=== PATIENT | female | born 2005 | race Caucasian/White ===

== ENCOUNTER 2023-04-30 09:36 | Day surgery (SDC) | payer OTHER, SELFPAY ==
[2023-04-30] VITALS (12 sets, daily range): BP systolic 112–145; BP diastolic 51–85; PULSE 69–133; RESP 16–20; TEMP 36.2–37.3; O2SAT 95–100; BMI 32.9
--- NOTE | ~2023-04-30 | CT_ITS ---
EXAMINATION: CT abdomen pelvis w IV con CLINICAL INFORMATION: Reason for Exam epigastric RLQ pain r/o appendicitis COMPARISON: No prior CT available for comparison. TECHNIQUE: Multidetector volumetric imaging was performed from the superior aspect of the liver through the pubic symphysis 85 mL Omnipaque 350 injected Sagittal and coronal reformatted images were obtained on the technologist's workstation. This CT examination was performed using dose optimization techniques as appropriate, variously including the following: *Automated exposure control *Adjustment of mA and/or kV according to patient size (this includes techniques or standardized protocols for targeted exams where dose is matched to indication/reason for exam; i.e. extremities or head) *Use of iterative reconstruction technique DLP: 561 mGy-cm FINDINGS: LOWER THORAX: Included lung bases are clear. HEPATOBILIARY: No focal hepatic lesions. No biliary ductal dilatation. GALLBLADDER: Gallbladder unremarkable. SPLEEN: Spleen is normal in size. PANCREAS: No focal mass or ductal dilatation. STOMACH AND GASTROINTESTINAL TRACT: Stomach is grossly unremarkable. There is no bowel distention or thickening. Appendix is a swollen dilated measures 1 cm, there is an appendicolith in its lumen, there is mild periappendiceal fat stranding, consistent with acute appendicitis. No evidence of rupture at this time. ADRENALS: No adrenal nodules. KIDNEYS/URETERS: No hydronephrosis, stones or solid mass lesions. URINARY BLADDER: Partially decompressed. PELVIC VISCERA: Unremarkable PERITONEUM: No free air or fluid. LYMPH NODES: No lymphadenopathy. VASCULAR:Abdominal aorta normal in size, no aneurysm found. BONES, ABDOMINAL WALL AND SOFT TISSUES: Age-appropriate changes of the spine and skeletal system, no destructive osteolytic or osteosclerotic bone lesion found CT/CT abdomen pelvis w IV con IMPRESSION: ACUTE APPENDICITIS, the appendix is swollen dilated measures 1 cm, there is an appendicolith in its lumen, there is mild periappendiceal fat stranding, no evidence of rupture at this time. Urgent surgical evaluation is warranted. This critical result was discussed with Lakeisha EDWARD by telephone at 04/30/2023 2:43 PM and it was ascertained that the content and urgency of the report was understood at the time of direct communication.
[2023-04-30 10:00] LABS: MANUAL DIFF FLAG NO
--- NOTE | 2023-04-30 10:00 | ED_ITS ---
HPI - Abdominal Pain General Chief Complaint: Abdominal Pain Stated Complaint: Abd pain Time Seen by Provider: 04/30/23 09:52 Source: patient and family (Mother) Mode of arrival: ambulatory Limitations: no limitations History of Present Illness HPI narrative: 18-year-old female without significant medical history presents to the emergency department for evaluation of sudden onset epigastric pain that is now in her lower abdomen that started this morning at 03:00 associated with nausea. Patient states her mother had Zofran at home, patient took 1 Zofran and nausea has improved. Patient tells me she still has her gallbladder and her appendix. She reports a significant discomfort to her lower abdomen described as a twisting she says when pain is severe she has some chest discomfort however not always. Patient reports she had a soft bowel movement this morning however was not diarrhea. Has been urinating per usual. Last menstrual period last week. Does not think she is . Denies shortness of breath, fevers, chills, vomiting, changes in urination or bowel habits, headache, vision changes, dizziness and weakness. Related Data Allergies Allergy/AdvReac Type Severity Reaction Status Date / Time apple Allergy Cough Verified 04/30/23 09:41 Review of Systems Review of Systems Constitutional : No Weight loss, No Fever, No Chills, No Fatigue, No Malaise ENT/Mouth : No sore throat, No Rhinorrhea Eyes: No Eye Pain, No Swelling, No Redness Cardiovascular : No Chest Pain, No SOB, No Dyspnea on Exertion, No Orthopnea, No Edema, No Palpitations Respiratory : No Cough, No Sputum, No Wheezing Gastrointestinal : + Nausea, No Vomiting, No Diarrhea, No Constipation, + abdominal Pain, No Hematochezia, No Melena Genitourinary : No Dysuria, No Urinary Frequency, No Hematuria, Musculoskeletal : No joint pain, No Myalgias, No Joint Swelling Skin : No Skin Lesions, No rash Neuro : No Weakness, No Numbness, No Dizziness, No Headache Psych : No Anxiety/Panic, No Depression All other systems reviewed and are negative Yes all other systems are reviewed and are negative [facility] Past Medical History Attestation statement: The following information was validated with the patient. Source: old records reviewed and nursing notes reviewed Social History Social History Advance Directives: No Physical Exam ED Vital Signs: Vital Signs - 24 hr 04/30/23 09:37 04/30/23 12:44 Temperature 98.3 F Pulse Rate 84 69 Respiratory Rate 18 16 Blood Pressure 145/85 H 119/66 Pulse Oximetry 95 98 Oxygen Delivery Method Room Air Room Air BMI result Body Mass Index 32.9 vss Appearance: Alert.? Oriented X3.? No acute distress.? Head: Normocephalic, atraumatic, no step-offs or deformities Eyes: Pupils equal, round and reactive to light.? Neck: Normal inspection.? Neck supple.? CVS: Normal heart rate and rhythm.? Pulses normal.? Respiratory: No respiratory distress.? Breath sounds normal.? Abdomen: Soft and lower abdominal tenderness to palpation R>L. No rebound or guarding. Normoactive bowel sounds.? Skin: Skin warm and dry.? Normal skin color.? Normal skin turgor.? Extremities: No lower extremity edema.? No calf ttp. 5/5 strength to bilateral upper and lower extremities Back: No midline tenderness, no C-spine tenderness, full range of motion, no CVA tenderness bilaterally Neuro: Oriented X 3.? No motor deficit.? No sensory deficit. CN 2-12 intact Course Reevaluation(s) Reevaluation #1: CBC with leukocytosis with left shift, chemistry unremarkable. Troponin negative, lipase within normal limits. UA clean urine negative. Time: 14:46 Reevaluation #2: CT concerning for acute appendicitis, discussed this case with Dr. Broussard will call in the operating room, patient has been NPO, history and physical exam consistent with this. Will give ceftriaxone at this time order blood cultures and lactic acid. Time: 14:48 Reevaluation #3: Patient to be admitted to the surgical team Medical Decision Making Medical Decision Making [facility] Narrative: 1002 18-year-old female presents with abdominal pain started in epigastric region at 03:00 now on the lower abdomen. Physical exam significant for Soft and lower abdominal tenderness to palpation R>L . No rebound or guarding. Normoactive bowel sounds.? History and physical exam likely viral illness versus constipation versus appendicitis. Unlikely cholecystitis, diverticulitis, pancreatitis, obs truction, acute abdomen. History and physical exam are not consistent with dissection, ectopic, torsion Plan labs, urine. Differential Diagnosis Differential Diagnoses: The differential diagnosis associated with the presentation includes istory and physical exam likely viral illness versus constipation versus appendicitis. Unlikely cholecystitis, diverticulitis, pancreatitis, obstruction, acute abdomen. History and physical exam are not consistent with dissection, ectopic, torsion Admission/Observation Consideration of admission/observation: Escalation of care including admission/observation considered Possible Consult Healthcare Provider Management of the patient was discussed with: Agricultural Mechanic (surgery ) Lab Data MDM Lab Attestation statement: I reviewed the patient's lab results. 04/30/23 09:57 04/30/23 09:57 Labs: Lab Results 04/30/23 04/30/23 04/30/23 Range/Units 09:57 09:57 09:57 WBC 13.3 H (4.8-10.8) X10*3/uL RBC 5.16 (4.20-5.50) X10*6/uL Hgb 14.8 (12.0-16.0) g/dl Hct 44.3 (37.0-47.0) % MCV 85.9 (80.0-98.0) fL MCH 28.7 (27.0-33.0) pg MCHC 33.4 (31.0-35.0) g/dl RDW 11.9 (11.0-16.0) % Plt Count 333 (160-400) X10*3/uL MPV 8.7 L (9.4-12.3) fL Immature Gran % (Auto) 0.3 (0.0-0.4) % Neut % (Auto) 86.7 H (45-73) % Lymph % (Auto) 7.9 L (20-40) % Mcdonough % (Auto) 3.9 (2-11) % Eos % (Auto) 0.7 (0-4) % Baso % (Auto) 0.5 (0-2) % Lymph # (Auto) 1.1 L (1.2-4.9) X10*3/uL Mcdonough # (Auto) 0.5 (0.1-1.2) X10*3/uL Eos # (Auto) 0.1 (0.0-0.4) X10*3/uL Baso # (Auto) 0.1 (0.0-0.2) X10*3/uL Abs Immat Gran (auto) 0.04 H (0.00-0.03) X10*3/uL Absolute Neuts (auto) 11.5 H (2.0-8.3) x10*3/uL Absolute Nucleated RBC 0.000 (0.0-0.012) X10*3/uL Nucleated RBC % (auto) 0.0 (0.0-0.2) /100WBC Sodium 138 (135-145) mmol/L Potassium 4.1 (3.3-5.1) mmol/L Chloride 104 (96-108) mmol/L Carbon Dioxide 25 (22-29) mmol/L Anion Gap 13 (12-20) BUN 13 (9-16) mg/dL Creatinine 0.72 (0.5-1.4) mg/dL Estim Creat Clear Calc 123.3 Estimated GFR > 60 Random Glucose 108 (60-115) mg/dL Estimat Average Glucose 97 mg/dL Hemoglobin A1c % 5.0 (<6.0) % Calcium 9.9 (8.4-10.2) mg/dL Troponin I High Sens (<3.5-17.0) ng/L Lipase (8-78) U/L Urine Color Urine Appearance Urine pH (5.0-9.0) Ur Specific [place] (1.005-1.025) Urine Protein (Neg-Trace) mg/dL Urine Glucose (UA) (Negative) mg/dL Urine Ketones (Negative) mg/dL Urine Blood (Negative) Urine Nitrite (Negative) Ur Leukocyte Esterase (Negative) Urine Test (NEGATIVE) 04/30/23 04/30/23 04/30/23 Range/Units 11:17 11:17 12:46 WBC (4.8-10.8) X10*3/uL RBC (4.20-5.50) X10*6/uL Hgb (12.0-16.0) g/dl Hct (37.0-47.0) % MCV (80.0-98.0) fL MCH (27.0-33.0) pg MCHC (31.0-35.0) g/dl RDW (11.0-16.0) % Plt Count (160-400) X10*3/uL MPV (9.4-12.3) fL Immature Gran % (Auto) (0.0-0.4) % Neut % (Auto) (45-73) % Lymph % (Auto) (20-40) % Mcdonough % (Auto) (2-11) % Eos % (Auto) (0-4) % Baso % (Auto) (0-2) % Lymph # (Auto) (1.2-4.9) X10*3/uL Mcdonough # (Auto) (0.1-1.2) X10*3/uL Eos # (Auto) (0.0-0.4) X10*3/uL Baso # (Auto) (0.0-0.2) X10*3/uL Abs Immat Gran (auto) (0.00-0.03) X10*3/uL Absolute Neuts (auto) (2.0-8.3) x10*3/uL Absolute Nucleated RBC (0.0-0.012) X10*3/uL Nucleated RBC % (auto) (0.0-0.2) /100WBC Sodium (135-145) mmol/L Potassium (3.3-5.1) mmol/L Chloride (96-108) mmol/L Carbon Dioxide (22-29) mmol/L Anion Gap (12-20) BUN (9-16) mg/dL Creatinine (0.5-1.4) mg/dL Estim Creat Clear Calc Estimated GFR Random Glucose (60-115) mg/dL Estimat Average Glucose mg/dL Hemoglobin A1c % (<6.0) % Calcium (8.4-10.2) mg/dL Troponin I High Sens < 2.7 (<3.5-17.0) ng/L Lipase 11 (8-78) U/L Urine Color Yellow Urine Appearance Clear Urine pH 5.5 (5.0-9.0) Ur Specific [place] 1.020 (1.005-1.025) Urine Protein Negative (Neg-Trace) mg/dL Urine Glucose (UA) Negative (Negative) mg/dL Urine Ketones 80 (Negative) mg/dL Urine Blood Negative (Negative) Urine Nitrite Negative (Negative) Ur Leukocyte Esterase Negative (Negative) Urine Test (NEGATIVE) 04/30/23 Range/Units 12:46 WBC (4.8-10.8) X10*3/uL RBC (4.20-5.50) X10*6/uL Hgb (12.0-16.0) g/dl Hct (37.0-47.0) % MCV (80.0-98.0) fL MCH (27.0-33.0) pg MCHC (31.0-35.0) g/dl RDW (11.0-16.0) % Plt Count (160-400) X10*3/uL MPV (9.4-12.3) fL Immature Gran % (Auto) (0.0-0.4) % Neut % (Auto) (45-73) % Lymph % (Auto) (20-40) % Mcdonough % (Auto) (2-11) % Eos % (Auto) (0-4) % Baso % (Auto) (0-2) % Lymph # (Auto) (1.2-4.9) X10*3/uL Mcd[place] # (Auto) (0.1-1.2) X10*3/uL Eos # (Auto) (0.0-0.4) X10*3/uL Baso # (Auto) (0.0-0.2) X10*3/uL Abs Immat Gran (auto) (0.00-0.03) X10*3/uL Absolute Neuts (auto) (2.0-8.3) x10*3/uL Absolute Nucleated RBC (0.0-0.012) X10*3/uL Nucleated RBC % (auto) (0.0-0.2) /100WBC Sodium (135-145) mmol/L Potassium (3.3-5.1) mmol/L Chloride (96-108) mmol/L Carbon Dioxide (22-29) mmol/L Anion Gap (12-20) BUN (9-16) mg/dL Creatinine (0.5-1.4) mg/dL Estim Creat Clear Calc Estimated GFR Random Glucose (60-115) mg/dL Estimat Average Glucose mg/dL Hemoglobin A1c % (<6.0) % Calcium (8.4-10.2) mg/dL Troponin I High Sens (<3.5-17.0) ng/L Lipase (8-78) U/L Urine Color Urine Appearance Urine pH (5.0-9.0) Ur Specific [place] (1.005-1.025) Urine Protein (Neg-Trace) mg/dL Urine Glucose (UA) (Negative) mg/dL Urine Ketones (Negative) mg/dL Urine Blood (Negative) Urine Nitrite (Negative) Ur Leukocyte Esterase (Negative) Urine Test NEGATIVE (NEGATIVE) Independent Interpretation I performed an independent interpretation of an: CT Scan (acute appendicitis) Radiology Impression Discussion of test interpretation with radiology: I have reviewed the radiologist's reading. Core Measures AMI core measures followed: Yes Measure exclusions: not indicated Medications Administered Discontinued Medications Generic Name Dose Route Start Last Admin Trade Name Freq PRN Reason Stop Dose Admin Sodium Chloride 1,000 mls @ 999 mls/hr 04/30/23 10:00 04/30/23 11:37 Ns IV 04/30/23 11:00 Infused .Q1H1M LYNSEY Infusion Iohexol 85 ml 04/30/23 13:38 04/30/23 13:39 Iohexol 350 Mg/Ml 100 Ml Infus..Btl IV 04/30/23 13:39 85 ml ONCE ONE Administration Ketorolac Tromethamine 30 mg 04/30/23 09:59 04/30/23 10:29 Ketorolac Tromethamine 15 Mg/Ml Vial IVPUSH 04/30/23 10:00 30 mg ONCE ONE Administration Critical Care Time Critical Care Time Critical Care Time: Yes Total Critical Care Time: 35 Attestation: I attest to this time spent taking care of the patient, obtaining history, physical, reviewing labs, imaging, speaking to my attending, speaking to specialist. Discharge Plan Discharge Clinical Impression: Acute appendicitis Patient Disposition: Still a Patient
[2023-04-30 10:01] LABS: Basophils Absolute Auto 0.1 X10*3/uL (0.0-0.2); Basophils Percent Auto 0.5 % (0-2); Eosinophils Absolute Auto 0.1 X10*3/uL (0.0-0.4); Eosinophils Percent Auto 0.7 % (0-4); Hematocrit 44.3 % (37.0-47.0); Hemoglobin 14.8 g/dl (12.0-16.0); Imm Gran Abs Auto 0.04 X10*3/uL (0.00-0.03); Imm Gran Pct Auto 0.3 % (0.0-0.4); Lymphocytes Absolute Auto 1.1 X10*3/uL (1.2-4.9); Lymphocytes Percent Auto 7.9 % (20-40); Mean Corpuscular HGB Conc 33.4 g/dl (31.0-35.0); Mean Corpuscular Hemoglobin 28.7 pg (27.0-33.0); Mean Corpuscular Volume 85.9 fL (80.0-98.0); Mean Platelet Volume 8.7 fL (9.4-12.3); Monocytes Absolute Auto 0.5 X10*3/uL (0.1-1.2); Monocytes Percent Auto 3.9 % (2-11); Neutrophils Absolute Auto 11.5 x10*3/uL (2.0-8.3); Neutrophils Percent Auto 86.7 % (45-73); Platelet Count 333 X10*3/uL (160-400); Red Blood Count 5.16 X10*6/uL (4.20-5.50); Red Cell Distribution Width 11.9 % (11.0-16.0); White Blood Count 13.3 X10*3/uL (4.8-10.8)
--- NOTE | 2023-04-30 10:02 | ECG_ITS ---
Test Reason : CHEST DISCOMFORT Blood Pressure : / mmHG Vent. Rate : 073 BPM Atrial Rate : 073 BPM P-R Int : 124 ms QRS Dur : 086 ms QT Int : 374 ms P-R-T Axes : 030 045 048 degrees QTc Int : 412 ms Normal sinus rhythm Normal ECG No previous ECGs available Referred By: Lakeisha Frazier Electronically Signed By:IRAIS RICHARDSON
[2023-04-30 10:15] LABS: Anion Gap 13 (12-20); Blood Urea Nitrogen 13 mg/dL (9-16); Calcium 9.9 mg/dL (8.4-10.2); Carbon Dioxide 25 mmol/L (22-29); Chloride 104 mmol/L (96-108); Creatinine Clr Calc Pharmacy 123.3; Estimated Glomerular Filt Rate > 60; Glucose Random 108 mg/dL (60-115); Potassium 4.1 mmol/L (3.3-5.1); Sodium 138 mmol/L (135-145)
[2023-04-30] MEDS: Ketorolac Tromethamine 15 MG/ML VIAL 30 MG IVPUSH (10:29)
[2023-04-30] MEDS: 0.9 % Sodium Chloride 1,000 ML 999 ML IV ×2 (10:30→15:25)
[2023-04-30 11:38] LABS: Lipase 11 U/L (8-78)
[2023-04-30 11:49] LABS: Troponin-I High Sensitivity < 2.7 ng/L (<3.5-17.0)
[2023-04-30 13:23] LABS: Appearance Urine Clear; Color Urine Yellow; Glucose Urine UA Negative (Negative); Leukocyte Esterase Urine Negative (Negative); Nitrite Urine Negative (Negative); PH 5.5 (5.0-9.0); Urine Blood Negative (Negative); Urine Ketones 80 mg/dL (Negative); Urine Protein Negative (Neg-Trace)
[2023-04-30 13:24] LABS: UPreg QC Valid YES; Urine Pregnancy NEGATIVE (NEGATIVE)
[2023-04-30] MEDS: iohexoL 350 MG/ML 100 ML INFUS..BTL 85 ML IV (13:39)
[2023-04-30 14:08] LABS: Estimated Average Glucose 97 mg/dL
[2023-04-30] MEDS: Morphine Sulfate 4 MG/ML CARTRIDGE IVPUSH (15:23)
--- NOTE | 2023-04-30 15:25 | PHA.MEDREC ---
Pharmacy Consult ? Medication Reconciliation Pharmacy has completed the medication reconciliation.
[2023-04-30] MEDS: cefTRIAXone sodium 1 GM in 0.9 % Sodium Chloride 50 ML IV (15:30)
--- NOTE | 2023-04-30 15:34 | P.HPGS_ITS ---
History of Present Illness History of Present Illness Date of Service: 04/30/23 Chief complaint: Abd pain Narrative: Madeleine Winkler is a 18 year old female presents here with approximately 1 day history of progressively worsening abdominal pain. This initially commenced with periumbilical nonspecific discomfort and progressed to right lower quadrant pain. Patient had some nausea. No diarrhea loose stool. No unusual diet. No sick contacts. Very healthy young lady. Chart was reviewed patient evaluated. [facility] Social History Social History Advance Directives: No Meds Allergies Allergy/AdvReac Type Severity Reaction Status Date / Time apple Allergy Cough Verified 04/30/23 09:41 Active Medications: Current Medications Sodium Chloride (Ns) 1,000 mls @ 999 mls/hr IV .Q1H1M LYNSEY Stop: 04/30/23 16:00 Last Admin: 04/30/23 15:25 Dose: 999 mls/hr Home Medications Medication Instructions Recorded Confirmed Last Taken Type No Known Home Meds 04/30/23 04/30/23 Unknown History Physical Exam Vital Signs: Vital Signs: Last Vital Signs Temp 98.3 F 04/30/23 09:37 Pulse 69 04/30/23 12:44 Resp 16 04/30/23 12:44 BP 119/66 04/30/23 12:44 Pulse Ox 98 04/30/23 12:44 O2 Del Method Room Air 04/30/23 12:44 BMI result Body Mass Index 32.9 Chest: Other: Chest breath sounds bilaterally, HS 1 in 2 GI: Other: Moderately corpulent abdomen. Marked right lower quadrant localized rebound tenderness. Remainder abdomen benign. Results Results Labs: Short CBC 04/30/23 Range/Units 09:57 WBC 13.3 H (4.8-10.8) X10*3/uL Hgb 14.8 (12.0-16.0) g/dl Hct 44.3 (37.0-47.0) % Plt Count 333 (160-400) X10*3/uL BMP 04/30/23 09:57 Sodium 138 Potassium 4.1 Chloride 104 Carbon Dioxide 25 BUN 13 Creatinine 0.72 Calcium 9.9 Urine 04/30/23 04/30/23 Range/Units 12:46 12:46 Urine Color Yellow Urine Appearance Clear Urine pH 5.5 (5.0-9.0) Ur Specific [place] 1.020 (1.005-1.025) Urine Protein Negative (Neg-Trace) mg/dL Urine Glucose (UA) Negative (Negative) mg/dL Urine Test NEGATIVE (NEGATIVE) Assessment and Plan (1) Acute appendicitis: Status: Acute Plan History, exam, and CT scan are all consistent with acute appendicitis. Risks, benefits, alternatives of laparoscopic possible open appendectomy were reviewed with the patient and her mother who was also present and included but not limited to bleeding, infection, numbness, pain, scarring, bladder or bowel injury or leak and the patient wishes to proceed. All questions were answered. Arrangements were made for this for today. Time Spent With Patient Time: Total time managing care of this patient today ____ minutes. Quality Stroke Does the patient have a stroke diagnosis?: No VTE Prior VTE?: No VTE Risk Level:: Surgical - low VTE Device Contraindication: Treatment Not Indicated VTE Drug Contraindication: Treatment Not Indicated Procedures Date of Service Date of Service: 04/30/23
--- NOTE | 2023-04-30 15:42 | PC.NURSE ---
pt seen by Dr. Broussard, consent for surgery signed. iv fluid started, meds given as documented. pt's mother at her bedside.
--- NOTE | 2023-04-30 16:12 | P.CONAN_ITS ---
HPI - Anesthesia Eval Consult details Narrative: Acute appendicitis [facility] Active Problems Active Problems: All Active Problems (Updated 04/30/23 @ 14:49 by CHEYANNE Ching) Acute appendicitis (Acute) Past Medical History Medical History (Updated 04/30/23 @ 16:13 by Sanket Martínez MD) Obesity (BMI 30.0-34.9) Family History Family history of problems with anesthesia: No Surgical History History of Problems with Anesthesia: No Social History Social History Advance Directives: No Meds Allergies Allergy/AdvReac Type Severity Reaction Status Date / Time apple Allergy Cough Verified 04/30/23 09:41 Exam Exam Date and Time: April 30, 2023 161 Height,Weight and Vital Signs: Height 5 ft 2 in Weight 81.5 kg Last Vital Signs Temp 98.3 F 04/30/23 09:37 Pulse 127 H 04/30/23 15:57 Resp 16 04/30/23 12:44 BP 112/55 L 04/30/23 15:57 Pulse Ox 98 04/30/23 15:57 O2 Del Method Room Air 04/30/23 15:57 Pertinent Lab Results Pertinent Lab Results: Laboratory Tests 04/30/23 04/30/23 04/30/23 09:57 09:57 09:57 WBC 13.3 H RBC 5.16 Hgb 14.8 Hct 44.3 MCV 85.9 MCH 28.7 MCHC 33.4 RDW 11.9 Plt Count 333 MPV 8.7 L Immature Gran % (Auto) 0.3 Neut % (Auto) 86.7 H Lymph % (Auto) 7.9 L [place] % (Auto) 3.9 Eos % (Auto) 0.7 Baso % (Auto) 0.5 Lymph # (Auto) 1.1 L [place] # (Auto) 0.5 Eos # (Auto) 0.1 Baso # (Auto) 0.1 Abs Immat Gran (auto) 0.04 H Absolute Neuts (auto) 11.5 H Absolute Nucleated RBC 0.000 Nucleated RBC % (auto) 0.0 Sodium 138 Potassium 4.1 Chloride 104 Carbon Dioxide 25 Anion Gap 13 BUN 13 Creatinine 0.72 Estim Creat Clear Calc 123.3 Estimated GFR > 60 Random Glucose 108 Estimat Average Glucose 97 Hemoglobin A1c % 5.0 Calcium 9.9 Troponin I High Sens Lipase Urine Color Urine Appearance Urine pH Ur Specific [place] Urine Protein Urine Glucose (UA) Urine Ketones Urine Blood Urine Nitrite Ur Leukocyte Esterase Urine Test 04/30/23 04/30/23 04/30/23 11:17 11:17 12:46 WBC RBC Hgb Hct MCV MCH MCHC RDW Plt Count MPV Immature Gran % (Auto) Neut % (Auto) Lymph % (Auto) [place] % (Auto) Eos % (Auto) Baso % (Auto) Lymph # (Auto) [place] # (Auto) Eos # (Auto) Baso # (Auto) Abs Immat Gran (auto) Absolute Neuts (auto) Absolute Nucleated RBC Nucleated RBC % (auto) Sodium Potassium Chloride Carbon Dioxide Anion Gap BUN Creatinine Estim Creat Clear Calc Estimated GFR Random Glucose Estimat Average Glucose Hemoglobin A1c % Calcium Troponin I High Sens < 2.7 Lipase 11 Urine Color Yellow Urine Appearance Clear Urine pH 5.5 Ur Specific [place] 1.020 Urine Protein Negative Urine Glucose (UA) Negative Urine Ketones 80 Urine Blood Negative Urine Nitrite Negative Ur Leukocyte Esterase Negative Urine Test 04/30/23 12:46 WBC RBC Hgb Hct MCV MCH MCHC RDW Plt Count MPV Immature Gran % (Auto) Neut % (Auto) Lymph % (Auto) [place] % (Auto) Eos % (Auto) Baso % (Auto) Lymph # (Auto) [place] # (Auto) Eos # (Auto) Baso # (Auto) Abs Immat Gran (auto) Absolute Neuts (auto) Absolute Nucleated RBC Nucleated RBC % (auto) Sodium Potassium Chloride Carbon Dioxide Anion Gap BUN Creatinine Estim Creat Clear Calc Estimated GFR Random Glucose Estimat Average Glucose Hemoglobin A1c % Calcium Troponin I High Sens Lipase Urine Color Urine Appearance Urine pH Ur Specific [place] Urine Protein Urine Glucose (UA) Urine Ketones Urine Blood Urine Nitrite Ur Leukocyte Esterase Urine Test NEGATIVE Airway Mallampati Class: I TM Dist: >3cm Neck ROM: Full Loose/Missing/Broken Teeth: No Heart: RRR Lungs: CTA Assessment and Plan Assessment Anesthesia Assessment: Anesthesia Plan Discussed and Chart Reviewed Final Anesthetic Review Family History of Problems with Anesthesia: No History of Problems with Anesthesia: No NPO: Yes ASA Class: II and Emergency Final Preanesthetic Review: No Changes in Pt Med Stat, Meds/Allgs Chart Reviewed, Consent Obtained/Reviewed and Anes Risks/Benef Reviewed Patient Risk: Intermediate Procedure Risk: Intermediate Anesthetic Plan Anesthetic Plan: GA Disposition: Standard PACU
--- NOTE | 2023-04-30 17:47 | P.OP_ITS ---
Operative Note Operative Note Date of Service: 04/30/23 Narrative: Preoperative diagnosis: [] Acute appendicitis Postop diagnosis: [] Same Procedure [] laparoscopic appendectomy Surgeon: [] [employer] Administrator: [] Type of Anesthesia: [] General Indication for surgery: [] Edematous inflamed appendix. No gross evidence of perforation. Moderately corpulent abdomen. Findings: [] Patient brought to the operating room, placed on operative table supine position, after adequate level of general anesthesia was induced, the patient's abdomen was prepped and draped in usual sterile fashion. Using supraumbilical curvy linear incision, Morelos technique was used to insufflate the abdominal cavity to 15 mm of CO2. Lower midline and suprapubic ports were placed under direct laparoscopic view, and the patient was placed in Trendelenburg position, and tilted to the left. Findings were as noted above. Appendix was grasped using laparoscopic graspers and brought onto the field. The mesentery was sequentially taken down using double firing of ligature device. Appendix was then transected at the cecal base using endoscopic NELSON stapler. Specimen was placed in an Endo-Catch bag, a retrieved through the umbilical port. Abdominal cavity was copiously irrigated, and secured hemostasis. All ports were removed under direct laparoscopic view. Wounds were closed in following manner; umbilical wound had its fascia reapproximated using interrupted 0 Vicryl sutures. Skin wounds were closed using subcuticular 4-0 Vicryl sutures followed by Steri-Strips and sterile dressings. Wounds were infiltrated 0.5% Marcaine at completion. Sponge, needle, and instrument counts reported to be correct. Patient tolerated the procedure well and emerged anesthesia stable condition. EBL minimal
--- NOTE | 2023-05-01 06:47 | HO.POSTANES ---
Post Anesthesia Evaluation Post Anesthesia Evaluation Date of Service: 05/01/23 Vital Signs: Vital Signs Temp Pulse Resp BP Pulse Ox O2 Del Method O2 Flow Rate 04/30/23 19:20 108 H 20 129/70 95 Room Air 04/30/23 19:05 107 H 20 128/51 L 95 Room Air 04/30/23 18:50 97.2 F 112 H 20 127/66 96 Nasal Cannula 2 Anesthesia: General Endotracheal-GETA Mental Status: Awake Pain Control: Satisfactory Nausea/Vomiting: None Hydration: Adequate Anesthesia-Related Issues: No Anes. Related Issues
== END 2023-04-30 19:42 | disposition home or self-care (01) ==
LOC: HO.ED 14:50 → HO.SSS 17:49
PROVIDERS: Physician Assistant; Emergency Provider Emergency Medicine; Visit Provider Surgery
PROC: 0DTJ4ZZ Resection of Appendix, Percutaneous Endoscopic Approach (ICD-10-PCS; CPT 44970; principal; 2023-04-30 16:15)
DX: K35.80 Unspecified acute appendicitis (principal); K66.0 Peritoneal adhesions (postprocedural) (postinfection); E66.9 Obesity, unspecified; Z68.32 Body mass index [BMI] 32.0-32.9, adult
CPT/HCPCS: 44970; 36415; 74177; 80048; 81003; 81025; 83036; 83690; 84484; 85025; 88304; 93005; 96361; 96365; 96375; 99284; 99285; J0131; J0330; J0696; J1100; J1885; J2250; J2270; J2405; J2550; J3010; Q9967

== ENCOUNTER → 2023-04-30 10:07 | Outpatient (BNV) | payer OTHER, SELFPAY | PROVIDERS: Emergency Provider Emergency Medicine; Visit Provider Surgery | DX: K35.80 Unspecified acute appendicitis (principal) | CPT/HCPCS: 44970; 99285 ==

== ENCOUNTER 2023-05-09 08:45 | Outpatient (AMB) | payer OTHER, SELFPAY ==
[2023-05-09 08:50] VITALS: BP 116/69; PULSE 81
--- NOTE | 2023-05-09 08:50 | MHC.OFFVIS ---
Intake Vital Signs 05/09/23 08:50 Weight 177 lb BP 116/69 Blood Pressure Location Rt brachial Position Sitting Pulse 81 Intake Visit Reasons: post op appy Intake Note: Patient here s/p appy. Reports incision healing well. No longer taking rx pain meds. 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 She is doing well. She is tolerating her diet and having normal bowel habits. She is increasing her activity level. She has minimal incisional discomfort. Pathology was reviewed [facility] Medical History Obesity (BMI 30.0-34.9) Surgical History History of laparoscopic appendectomy (04/30/23) Physical Exam Vital Signs: Last Vital Signs Pulse 81 05/09/23 08:50 BP 116/69 05/09/23 08:50 GI Other: Abdomen soft. Wound clean dry and intact. Assessment & Plan Assessment & Plan (1) Acute appendicitis: Code(s): K35.80 - Unspecified acute appendicitis Plan Patient and mother have been given local instructions, and will follow-up p.r.n.. Work note was provided. Coding Level of Care Code Global (82991) Diagnoses Acute appendicitis K35.80
== END 2023-05-09 09:00 | disposition home or self-care (01) ==
PROVIDERS: Visit Provider Surgery
DX: K35.80 Unspecified acute appendicitis (principal)
CPT/HCPCS: 99024

== ENCOUNTER → 2023-05-09 08:45 | Outpatient (BNVA) | payer OTHER, SELFPAY | PROVIDERS: Visit Provider Surgery ==

== ENCOUNTER 2023-11-19 14:03 | Emergency (ER) | payer OTHER, SELFPAY ==
--- NOTE | ~2023-11-19 | XR_ITS ---
EXAMINATION: XR CHEST CLINICAL INFORMATION: Cough x1 week COMPARISON: None available. TECHNIQUE: 2 views of the chest were obtained. FINDINGS: No significant abnormality is noted involving the heart, lungs, mediastinum, bony thorax or soft tissues. XR/XR chest 2V IMPRESSION: Unremarkable chest examination.
[2023-11-19 14:12] VITALS: BP 146/87; PULSE 112; RESP 16; TEMP 36.2; O2SAT 97; BMI 32.0
--- NOTE | 2023-11-19 14:13 | ED_ITS ---
HPI - General Adult General Chief complaint: General Medical Stated complaint: Sinus infection Time Seen by Provider: 11/19/23 15:36 Source: patient Mode of arrival: ambulatory Limitations: no limitations History of Present Illness HPI narrative: Patient is a 18-year-old female presenting to the emergency department with complaint of sinus pain and pressure as well as nonproductive cough for the past week. Reports cough is slowly improving but nasal congestion and sinus pain is worsening. Denies fevers. MD complaint: sinus pain Onset (ago): week(s) Location: face Severity: severe Quality: aching Pain Consistency: constant Associated symptoms: cough Treatments prior to arrival: none Related Data Previous Rx's Medication Instructions Recorded azithromycin 250 mg tablet See Rx Instructions PO .COMPLEX #6 11/19/23 tabs Allergies Allergy/AdvReac Type Severity Reaction Status Date / Time apple Allergy Cough Verified 05/09/23 08:51 Review of Systems Review of Systems: As per HPI. Yes all other systems are reviewed and are negative Constitutional: Constitutional: Reports as per HPI COUNTS INCLUDE 234 BEDS AT THE [facility] Past Medical History Medical History Obesity (BMI 30.0-34.9) Surgical History History of laparoscopic appendectomy (04/30/23) Social History Social History Advance Directives: No Advance Directives Information Provided: No Physical Exam ED Vital Signs: Vital Signs - 24 hr 11/19/23 14:12 Temperature 97.2 F Pulse Rate 112 H Respiratory Rate 16 Blood Pressure 146/87 H Pulse Oximetry 97 Oxygen Delivery Method Room Air BMI result Body Mass Index 32.0 Vital signs have been reviewed and appear to be correct. Blood pressure elevated. Heart rate mildly tachycardic. Respiratory rate normal. Temperature normal. Oxygen saturation normal. Const General: cooperative, healthy appearing and no acute distress Orientation/consciousness: oriented to person, oriented to place, oriented to time and patient oriented x3 Limitations: no limitations HENMT Head: Yes normocephalic and Yes atraumatic Ears: external ears normal, TM's normal bilaterally and EAC's normal General nose exam: Normal external nose present, Normal nasal mucous membranes and turbinates present and Normal septum present Face and sinus: Yes face symmetric and Yes sinus tenderness (bilateral maxillary) Mouth: oropharynx normal and moist mucous membranes Throat: Yes uvula midline Eyes Pupils: Equal, round and reactive pupils present Neck Neck: Yes normal visual inspection and Yes supple Resp Effort & Inspection: normal respiratory effort and able to speak in complete sentences Auscultation: clear to auscultation bilaterally Cardio Rate: regular rate Rhythm: regular rhythm Heart sounds: S1 normal heart sound present and S2 normal heart sound present GI Palpation (GI): Soft to palpation and nontender Auscultation: normoactive bowel sounds General: Yes no CVA tenderness Back/Spine/Pelvis Back: no CVA tenderness Skin General skin exam: elasticity normal and turgor normal Neuro General: oriented to person, oriented to place, oriented to time, patient oriented x3, moves all extremities, no focal motor deficits and CN's II-XI intact bilaterally Cranial nerves: Yes Equal, round and reactive pupils present Cognition (Neuro): normal cognition Extrem General: Yes full ROM, Yes no pedal edema and Yes no calf tenderness Psych Mental Status: mental status grossly normal Affect: normal affect Thought process: Normal thought process present Course Course Course Narrative: This is a rapid medical exam: Additional HPI, ROS, PE not included below will be deferred to primary provider. Patient is a 18-year-old female complaining of one week of nasal congestion, sinus pain and pressure, cough. Plan: viral swabs, CXR Medical Decision Making Medical Decision Making MDM Narrative: Patient is a 18-year-old female presenting to the emergency department with complaint of sinus pain and pressure as well as nonproductive cough for the past week. On exam patient is awake, A+Ox3, mildly tachycardic, VS otherwise WNL, afebrile, normal neurological exam without focal deficits, physical exam findings as above. Given reported symptoms and physical exam findings, initial differential includes rhino sinusitis, bronchitis, pneumonia, viral illness, COVID, flu, RSV. Swabs for COVID, flu, RSV all negative. X-ray notable for no evidence of pneumonia. My interpretation is in agreement with the radiologist's interpretation. Will treat patient with course of azithromycin for acute rhinosinusitis. Advised patient to alternate Tylenol and ibuprofen for fever discomfort. Instructed patient to follow-up with primary care provider. Return precautions discussed. Patient verbalized understanding of and agreement with plan. Differential Diagnosis Differential Diagnoses: The differential diagnosis associated with the presentation includes As per [facility]. Admission/Observation Consideration of admission/observation: Escalation of care including admission/observation considered Patient would have been admitted to the hospital had their work up had any findings where hospital admission was appropriate and their clinical presentation warranted hospital admission. Lab Data [facility] Lab Attestation statement: I reviewed the patient's lab results. As per [facility]. Labs: Lab Results 11/19/23 Range/Units 14:29 Influenza Type A (PCR) NEGATIVE (Negative) Influenza Type B (PCR) NEGATIVE (Negative) RSV RNA Qual (PCR) NEGATIVE (Negative) SARS-CoV-2 RNA (RT-PCR) NEGATIVE (Negative) Independent Interpretation I performed an independent interpretation of an: Plain X-Ray Interpretation: No evidence of pneumonia on chest x-ray Radiology Impression Discussion of test interpretation with radiology: I have reviewed the radiologist's reading. Radiologist Impression: XR/XR chest 2V IMPRESSION: Unremarkable chest examination. External Record Review External record reviewed: Inpatient record, Office record and Outpatient record Prescription Management I considered prescription management with: Antibiotic Discharge Plan Discharge Clinical Impression: Acute rhinosinusitis Patient Disposition: Home, Self-Care Instructions: Sinusitis (ED), Rhinosinusitis (DC), Warm Compress or Soak (ED) Additional Instructions: You are evaluated in the emergency department today for sinus pain and pressure as well as cough. Your chest x-ray did not show evidence of pneumonia. Your swabs for COVID, flu, and RSV were all negative. You are being treated for sinusitis with a course of antibiotics. Please complete the full course as prescribed. We recommend that you take 650 mg of Tylenol or 600 mg ibuprofen every 6 hours for fever or discomfort. If necessary, you can alternate these medications every 3 hours. For example, at 9:00 a.m. take Tylenol, then at noon take ibuprofen, then at 3:00 p.m. take Tylenol, etc.. Please follow-up with your primary care provider. Return to the emergency department for increasing pain, shortness of breath or difficulty breathing, fevers not improve with Tylenol or ibuprofen or any other concerning symptoms. Prescriptions: New azithromycin 250 mg tablet See Rx Instructions .ROUTE .COMPLEX Qty: 6 0RF Rx Instructions: For 250 mg dose pack: take 500 mg today (day 1), then 250 mg for 4 days (days 2-5) Stand Alone Forms: Work/School Release
[2023-11-19 15:31] LABS: Influenza A PCR NEGATIVE (Negative); Influenza B PCR NEGATIVE (Negative); Resp Syncy Virus RNA Qual PCR NEGATIVE (Negative); SARS COV2 PCR INHOUSE NEGATIVE (Negative)
== END 2023-11-19 15:48 | disposition home or self-care (01) ==
PROVIDERS: Registered Nurse Emergency; Emergency Provider Emergency Medicine
DX: J01.90 Acute sinusitis, unspecified (principal); Z11.52 Encounter for screening for COVID-19; Z20.828 Contact with and (suspected) exposure to other viral communicable diseases
CPT/HCPCS: 0241U; 71046; 99281; 99283